=== PATIENT | female | born 1990 | race African-American/Black ===

== ENCOUNTER 2016-08-15 11:34 | Emergency (ER) | payer OTHER ==
[2016-08-15] MEDS ORDERED: NO MEDICATIONS (11:36)
[2016-08-15 12:16] LABS: URINE SOURCE CLEAN CATCH
[2016-08-15 12:18] LABS: URINE APPEARANCE CLEAR; URINE BILIRUBIN NEG (NEG); URINE BLOOD NEG (NEG); URINE COLOR YELLOW; URINE GLUCOSE NEG (NORM); URINE KETONE NEG (NEG); URINE LEUKOCYTE ESTERASE 1+ (NEG); URINE NITRATE NEG (NEG); URINE PROTEIN NEG (NEG); URINE SPECIFIC GRAVITY 1.015 (1.003-1.035); URINE UROBILINOGEN 0.2 MG/DL (NORM)
[2016-08-15 12:20] LABS: MICRO INDICATED? YES
[2016-08-15 12:31] LABS: CULTURE INDICATED? YES; URINE BACTERIA 1+ (NEG); URINE RBC 0-2 /[HPF] (0-2); URINE SQUAMOUS EPITHELIAL CELL FEW /[HPF]; URINE TRICHOMONAS PRESENT
[2016-08-17 11:49] LABS: CHLAMYDIA TRACH Not Detected (Not Detected); N GONOR Not Detected (Not Detected)
== END 2016-08-15 12:52 | disposition home or self-care (01) ==
LOC: SED 11:34
PROVIDERS: Emergency Medicine
DX: A59.03 Trichomonal cystitis and urethritis (principal); F17.210 Nicotine dependence, cigarettes, uncomplicated; Z91.040 Latex allergy status
CPT/HCPCS: 81003; 84703; 87086; 87491; 87591; 87808; 87905; 99284

== ENCOUNTER 2016-10-02 21:19 | Emergency (ER) | payer OTHER ==
[~2016-10-02 21:19] MED LIST: NO MEDICATIONS
[2016-10-02 22:20] LABS: URINE SOURCE CLEAN CATCH
[2016-10-02 22:22] LABS: URINE APPEARANCE CLEAR; URINE BILIRUBIN NEG (NEG); URINE BLOOD NEG (NEG); URINE COLOR YELLOW; URINE GLUCOSE NEG (NORM); URINE KETONE TRACE (NEG); URINE LEUKOCYTE ESTERASE TRACE (NEG); URINE NITRATE NEG (NEG); URINE PROTEIN NEG (NEG); URINE SPECIFIC GRAVITY 1.025 (1.003-1.035)
[2016-10-02 22:24] LABS: MICRO INDICATED? YES
[2016-10-02 22:25] LABS: CULTURE INDICATED? YES; URINE BACTERIA 1+ (NEG); URINE MUCUS PRESENT; URINE RBC 0-2 /[HPF] (0-2); URINE SQUAMOUS EPITHELIAL CELL OCCAS /[HPF]
[2016-10-05 11:31] LABS: CHLAMYDIA TRACH Not Detected (Not Detected); N GONOR Not Detected (Not Detected)
== END 2016-10-03 00:27 | disposition home or self-care (01) ==
LOC: SED 21:19
PROVIDERS: Physician Assistant Medical
DX: N89.8 Other specified noninflammatory disorders of vagina (principal); F17.210 Nicotine dependence, cigarettes, uncomplicated; Z91.040 Latex allergy status
CPT/HCPCS: 81003; 84703; 87086; 87210; 87491; 87591; 87808; 87905; 99284